=== PATIENT | male | born 1945 | race Caucasian/White ===

== ENCOUNTER 2019-05-26 09:04 | Day surgery (SDC) | payer MEDICARE, BC ==
[~2019-05-26 09:04] MED LIST: Lactated Ringers 1,000 ML IV SCH
[2019-05-26] MEDS ORDERED: Propofol 200 MG/20 ML SDV ONE (11:11)
[2019-05-26] MEDS ORDERED: fentaNYL 100 MCG/2 ML SDV ONE (11:11)
[2019-05-26] MEDS ORDERED: Midazolam 1 MG/ML 2 ML SDV ONE (11:11)
--- NOTE | 2019-05-26 17:54 | OR ---
PRE-OPERATIVE DIAGNOSIS: Screening colonoscopy. The patient's last colonoscopy was in about 2002. There is no known family history of colon cancer or colon polyps. POST-OPERATIVE DIAGNOSES: 1. Three total polyps removed. a. 9 mm and 3 mm polyps at 130 cm with the larger removed using hot snare and smaller removed using cold snare. b. 2 mm polyp at 110 cm removed using cold forceps. 2. Floppy redundant colon likely from chronic laxative use. PROCEDURE: Colonoscopy with polypectomy x3 (one using hot snare, one using cold snare, and one using cold forceps). ANESTHESIA: Monitored anesthesia care. BOWEL PREP: Fair to poor. This did require significant irrigation and suction, but I would say we were able to adequately visualize the vast majority of the colonic mucosa after irrigation. DESCRIPTION OF PROCEDURE: Delta is a 73-year-old male who was brought to the endoscopy suite after discussing risks and benefits of the procedure. Informed consent was obtained for conscious sedation and colonoscopy with or without biopsy and/or polypectomy. We also discussed possibility of missed lesions. Pre-procedure exam was unremarkable. IV, oxygen, and monitors were placed. The patient was placed in the left lateral decubitus position. Sedation was administered and a digital rectal exam was performed and unremarkable. Colonoscope was passed into the rectum and slowly advanced all the way to the cecum. Cecum was viewed and photographed. The colonoscope was slowly withdrawn and the mucosa was closely observed in a direct circumferential manner. The ascending colon was remarkable for 9 mm and 3 mm polyps at 130 cm, removed using hot snare and cold snare respectively. The transverse colon revealed 2 mm polyp at 110 cm removed using cold forceps. Descending colon unremarkable. Sigmoid colon unremarkable. Retroflexion was performed. Rectal mucosa unremarkable. Scope was removed. The patient tolerated the procedure well. The patient was monitored until that baseline status. Discharge instructions were reviewed and the patient was discharged in good condition. COMPLICATIONS: None. TOTAL TIME: 36 minutes. ESTIMATED BLOOD LOSS: Less than 1 mL. RECOMMENDATIONS/FOLLOW-UP: We will await results of path report to determine ideal followup interval. I will have the patient hold his aspirin for 3 days to limit any chance of bleeding from the polypectomy sites. I would like to kindly thank Jared Nunez for this referral. DMB: 05/26/2019 12:53:02 MODL: 05/26/2019 17:49:55 /[id number]
== END 2019-05-26 13:20 | disposition home or self-care (01) ==
LOC: VM.SDS 09:04
PROVIDERS: ATTEND Family Medicine
DX: Z12.11 Encounter for screening for malignant neoplasm of colon (principal); Z86.010 Personal history of colon polyps; D12.3 Benign neoplasm of transverse colon
CPT/HCPCS: 00811; 45380; 45385; 82962; 88305; J2250; J2704; J3010; J7120; 45384

== ENCOUNTER 2020-04-25 14:28 | Inpatient (IN) | payer MEDICARE, BC ==
[2020-04-25] MEDS ORDERED: Sennosides 8.6 MG Tab PO PRN (16:43)
[2020-04-25] MEDS ORDERED: traMADol 50 MG Tab PO PRN (16:43)
[2020-04-25] MEDS: metFORMIN 500 MG Tab PO SCH (18:01)
--- NOTE | 2020-04-25 19:45 | HP ---
CHIEF COMPLAINT: Back surgery. HISTORY OF PRESENT ILLNESS: This is a 74-year-old male who underwent an L2 through 5 PLIF with osteotomies and interbody fusion on 04/17. His postoperative course was complicated by increased incisional back pain, which was eventually controlled with IV Dilaudid and Tracy and tramadol, which he was alternating it sounds like every 6 hours scheduled. They would just bring it to him. Intraoperatively, he also had a durotomy that was repaired. The patient tells me he was having bowel movement since surgery, but none since 2 days ago. His pain was really doing pretty good until the ride over today and then trying to get his clothes off and use the urinal. He has not had any cough or trouble breathing. His underlying medical issues of diabetes and hypertension were stable during his stay in [place]. His blood sugars were in the 130s to 199 before leaving. He told me he was eating quite good. The patient had a COVID test yesterday that was negative. His kidney function was excellent at 0.8 yesterday. Otherwise, he does have an intrathecal pain pump with Dilaudid, which he has not used, but was recommended he could start using once he was off the IV Dilaudid. He has remote for bolus dosing. ALLERGIES: Include penicillin. MEDICATIONS: Include hydrocodone 10/325 every 6 hours as needed for moderate-to- severe pain for up to 10 days, tramadol 50 mg every 6 hours as needed for yrmlsyky-hj-wubxiu pain for up to 14 days, Senokot 1 tab twice daily as needed for constipation, Colace 1 capsule 2 times a day as needed for constipation, Cymbalta 90 mg daily, intrathecal pain pump with hydromorphone, clonidine, bupivacaine. If any questions, call Pain Management at [phone]. Neurontin 800 three times a day, vitamin D 3000 units daily, baclofen 10 mg twice daily as needed for muscle spasm, metformin 500 mg twice daily with meals, glipizide 5 mg daily, lisinopril 2.5 daily, Prilosec 20 mg daily, Crestor 20 mg at bedtime, Flomax 0.8 daily, MiraLAX 17 g daily, Ditropan 5 mg b.i.d., ketoconazole shampoo, looks like that was from 2018, betamethasone lotion also from 2017, aspirin 81 mg daily. May resume 1 week after surgery, which is now. Melatonin 10 mg at bedtime, B12 1000 mcg daily, diabetic testing supplies, and a multivitamin. 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 The patient is unaware of any heart disease. Chronic renal insufficiency is listed, however, recent creatinine was normal. COPD, degenerative disk disease of the lumbar spine, previous cervical spine surgery, type 2 diabetes, erectile dysfunction, essential hypertension, hyperlipidemia, hypogonadism, neuropathic pain with neuropathy, obesity, arthritis of the right hip. PAST SURGICAL HISTORY: The patient has had the left total hip surgery done, the spine surgery, anal fistula surgery, a left shoulder surgery, a right shoulder replacement. The left shoulder was just rotator cuff ruptured tendon repair, pain pump insertion, bilateral elbow surgeries, the cervical neck surgery, the hernia repair in 1996, inguinal, cholecystectomy, anal fissure surgery. SOCIAL HISTORY: The patient is . He lives at home with his . He is retired. 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 He is a nonsmoker, nondrinker. Did quit smoking in 2006. FAMILY HISTORY: Both parents are . Mother had dementia and arthritis. Father had a heart attack. His sister had some heart valve issue. REVIEW OF SYSTEMS: General: He has not had any fever, chills per chart review. No significant changes in weight other than he is 7 pounds steam bone press tender than before surgery. HEENT: No trouble swallowing. Cardiac: No chest pain. No palpitations. Respiratory: No cough. No shortness of breath. GI: No abdominal pain, nausea, or vomiting. Musculoskeletal: He has had back discomfort. Skin: No infections. : No issues with urination. Otherwise, all systems reviewed and found to be negative unless otherwise stated. PHYSICAL EXAMINATION: Vital Signs: His weight is 88.4 kg. Temp 98.8, pulse 82, blood pressure 123/74, respiratory rate is 16, O2 of 95% on room air. General: He is in no acute distress. Heart: Regular rate and rhythm. S1, S2 without murmur. Lungs: Lungs sounds are clear to auscultation bilaterally without crackles or wheezes. Abdomen: Has positive bowel sounds. Soft, nontender. Extremities: Warm and dry. Pain pump noted in the left lower quadrant. Mental Status: Alert and oriented x3. Incision was intact. He had sutures in place. There was mild redness and irritation at the superior aspect, but no drainage. The patient felt this was from rubbing on the chair. ASSESSMENT: 1. Status post L2 through 5 posterior lumbar interbody fusion with osteotomies on 04/17/2020. 2. Postoperative pain. 3. Diabetes type 2, on oral medications, controlled with neuropathy. 4. Essential hypertension. 5. Nonobstructive coronary artery disease. 6. Obesity. 7. Benign prostatic hyperplasia. 8. Neuropathy. PLAN: The patient will be admitted for swing bed cares. We will get PT, OT involved. We will do q.i.d. Accu-Cheks. We will restart his aspirin. We will have him on ALLAN hose and incentive spirometry. We will have his back brace on when out of bed as recommended for the next 6 weeks. He will have no NSAIDs for 3 months postop. He will have sutures out on the , and he will follow up with Neurosurgery in 6 weeks. Otherwise, we will schedule the Tracy 3 times a day and keep it q.6 hours p.r.n. along with the tramadol to ensure his pain is well controlled. Eventually, hopefully, we will get him only on p.r.n. and using less amounts. I will contact the Pain Clinic in [place] tomorrow, but I anticipate he will be able to use his IV bolus intrathecal pain pump soon. The patient is a code level 1. MKA: 04/25/2020 17:49:47 MODL: 04/25/2020 19:36:10 /[id number]
[2020-04-25] MEDS: Gabapentin 400 MG Cap PO SCH (19:53)
[2020-04-25] MEDS: Acetaminophen/HYDROcodone 325-10 MG Tab PO SCH (19:54)
[2020-04-25] MEDS: Oxybutynin 5 MG Tab PO SCH (19:55)
[2020-04-26] MEDS: Omeprazole 20 MG Cap.CR PO SCH (06:12)
[2020-04-26] MEDS: Acetaminophen/HYDROcodone 325-10 MG Tab PO PRN (06:12)
[2020-04-26] MEDS: glipiZIDE 5 MG Tab.ER PO SCH (08:04)
[2020-04-26] MEDS: Gabapentin 400 MG Cap PO SCH ×3 (08:04→21:13)
[2020-04-26] MEDS: Oxybutynin 5 MG Tab PO SCH ×2 (08:04→21:15)
[2020-04-26] MEDS: DULoxetine 60 MG Cap PO SCH (08:04)
[2020-04-26] MEDS: Cyanocobalamin (Vitamin B12) 1,000 MCG Tab PO SCH (08:04)
[2020-04-26] MEDS: DULoxetine 30 MG Cap PO SCH (08:04)
[2020-04-26] MEDS: atorvaSTATin 40 MG Tab PO SCH (08:04)
[2020-04-26] MEDS: Tamsulosin 0.4 MG Cap.ER PO SCH (08:05)
[2020-04-26] MEDS: Aspirin 81 MG Tab.EC PO SCH (08:05)
[2020-04-26] MEDS: metFORMIN 500 MG Tab PO SCH ×2 (08:05→18:32)
[2020-04-26] MEDS: Acetaminophen/HYDROcodone 325-10 MG Tab PO SCH ×3 (08:05→21:15)
[2020-04-26] MEDS: Polyethylene Glycol 3350 Powder 17 GM Packet PO SCH (08:06)
[2020-04-26] MEDS: Lisinopril 2.5 MG Tab PO SCH (08:06)
[2020-04-26] MEDS: Cholecalciferol (Vitamin D3) 25 MCG Tab PO SCH (08:13)
[2020-04-26] MEDS: Multivitamin, Stress Formula with Zinc Tab PO SCH (08:13)
[2020-04-26] MEDS: Acetaminophen/Diphenhydramine 500-25 MG Tab PO SCH (21:14)
[2020-04-26] MEDS: Melatonin 3 MG Tab PO SCH (21:15)
[2020-04-27] MEDS: Omeprazole 20 MG Cap.CR PO SCH (06:18)
[2020-04-27] MEDS: glipiZIDE 5 MG Tab.ER PO SCH (08:13)
[2020-04-27] MEDS: Polyethylene Glycol 3350 Powder 17 GM Packet PO SCH (08:13)
[2020-04-27] MEDS: DULoxetine 60 MG Cap PO SCH (08:13)
[2020-04-27] MEDS: Cyanocobalamin (Vitamin B12) 1,000 MCG Tab PO SCH (08:13)
[2020-04-27] MEDS: Aspirin 81 MG Tab.EC PO SCH (08:13)
[2020-04-27] MEDS: atorvaSTATin 40 MG Tab PO SCH (08:13)
[2020-04-27] MEDS: Lisinopril 2.5 MG Tab PO SCH (08:13)
[2020-04-27] MEDS: Gabapentin 400 MG Cap PO SCH ×3 (08:13→20:37)
[2020-04-27] MEDS: Tamsulosin 0.4 MG Cap.ER PO SCH (08:14)
[2020-04-27] MEDS: DULoxetine 30 MG Cap PO SCH (08:14)
[2020-04-27] MEDS: Acetaminophen/HYDROcodone 325-10 MG Tab PO SCH ×3 (08:14→20:39)
[2020-04-27] MEDS: Oxybutynin 5 MG Tab PO SCH ×2 (08:14→20:39)
[2020-04-27] MEDS: metFORMIN 500 MG Tab PO SCH ×2 (08:14→18:15)
[2020-04-27] MEDS: Cholecalciferol (Vitamin D3) 25 MCG Tab PO SCH (08:15)
[2020-04-27] MEDS: Multivitamin, Stress Formula with Zinc Tab PO SCH (08:15)
[2020-04-27] MEDS: Vitamin B Complex Tab PO SCH (09:49)
[2020-04-27] MEDS: Docusate Sodium 100 MG Cap PO PRN (20:36)
[2020-04-27] MEDS: Melatonin 3 MG Tab PO SCH (20:38)
[2020-04-27] MEDS: Acetaminophen/Diphenhydramine 500-25 MG Tab PO SCH (20:38)
[2020-04-28] MEDS: Omeprazole 20 MG Cap.CR PO SCH (06:19)
[2020-04-28] MEDS: glipiZIDE 5 MG Tab.ER PO SCH (08:19)
[2020-04-28] MEDS: Polyethylene Glycol 3350 Powder 17 GM Packet PO SCH (08:19)
[2020-04-28] MEDS: DULoxetine 30 MG Cap PO SCH (08:20)
[2020-04-28] MEDS: Cholecalciferol (Vitamin D3) 25 MCG Tab PO SCH (08:20)
[2020-04-28] MEDS: Lisinopril 2.5 MG Tab PO SCH (08:20)
[2020-04-28] MEDS: Acetaminophen/HYDROcodone 325-10 MG Tab PO SCH ×3 (08:24→20:46)
[2020-04-28] MEDS: DULoxetine 60 MG Cap PO SCH (08:24)
[2020-04-28] MEDS: Vitamin B Complex Tab PO SCH (08:25)
[2020-04-28] MEDS: Gabapentin 400 MG Cap PO SCH ×3 (08:25→20:45)
[2020-04-28] MEDS: Oxybutynin 5 MG Tab PO SCH ×2 (08:25→20:45)
[2020-04-28] MEDS: Tamsulosin 0.4 MG Cap.ER PO SCH (08:25)
[2020-04-28] MEDS: Aspirin 81 MG Tab.EC PO SCH (08:25)
[2020-04-28] MEDS: atorvaSTATin 40 MG Tab PO SCH (08:25)
[2020-04-28] MEDS: Cyanocobalamin (Vitamin B12) 1,000 MCG Tab PO SCH (08:25)
[2020-04-28] MEDS: metFORMIN 500 MG Tab PO SCH ×2 (08:26→17:24)
[2020-04-28] MEDS: Docusate Sodium 100 MG Cap PO PRN (17:25)
[2020-04-28] MEDS: Acetaminophen/Diphenhydramine 500-25 MG Tab PO SCH (20:45)
[2020-04-28] MEDS: Melatonin 3 MG Tab PO SCH (20:47)
[2020-04-29] MEDS: Omeprazole 20 MG Cap.CR PO SCH (06:03)
[2020-04-29] MEDS: Polyethylene Glycol 3350 Powder 17 GM Packet PO SCH (07:49)
[2020-04-29] MEDS: metFORMIN 500 MG Tab PO SCH ×2 (07:50→17:35)
[2020-04-29] MEDS: Oxybutynin 5 MG Tab PO SCH ×2 (07:50→21:00)
[2020-04-29] MEDS: glipiZIDE 5 MG Tab.ER PO SCH (07:50)
[2020-04-29] MEDS: Acetaminophen/HYDROcodone 325-10 MG Tab PO SCH ×3 (07:50→21:00)
[2020-04-29] MEDS: Tamsulosin 0.4 MG Cap.ER PO SCH (07:50)
[2020-04-29] MEDS: Cholecalciferol (Vitamin D3) 25 MCG Tab PO SCH (07:51)
[2020-04-29] MEDS: DULoxetine 30 MG Cap PO SCH (07:51)
[2020-04-29] MEDS: DULoxetine 60 MG Cap PO SCH (07:51)
[2020-04-29] MEDS: Aspirin 81 MG Tab.EC PO SCH (07:51)
[2020-04-29] MEDS: Vitamin B Complex Tab PO SCH (07:51)
[2020-04-29] MEDS: Lisinopril 2.5 MG Tab PO SCH (07:52)
[2020-04-29] MEDS: atorvaSTATin 40 MG Tab PO SCH (07:54)
[2020-04-29] MEDS: Gabapentin 400 MG Cap PO SCH ×3 (07:54→21:00)
[2020-04-29] MEDS: Cyanocobalamin (Vitamin B12) 1,000 MCG Tab PO SCH (07:54)
[2020-04-29] MEDS ORDERED: Bisacodyl 10 MG Supp RECTAL ONE (11:27)
[2020-04-29] MEDS: Docusate Sodium 100 MG Cap PO PRN (12:09)
[2020-04-29] MEDS ORDERED: Magnesium Citrate Solution 296 ML Bottle PO ONE (20:43)
[2020-04-29] MEDS: Acetaminophen/Diphenhydramine 500-25 MG Tab PO SCH (21:00)
[2020-04-29] MEDS: Melatonin 3 MG Tab PO SCH (21:00)
[2020-04-29] MEDS: Docusate Sodium 100 MG Cap PO SCH (21:22)
[2020-04-30] MEDS: Omeprazole 20 MG Cap.CR PO SCH (06:07)
[2020-04-30] MEDS ORDERED: Magnesium Citrate Solution 296 ML Bottle PO ONE (08:00)
[2020-04-30] MEDS: Polyethylene Glycol 3350 Powder 17 GM Packet PO SCH (08:28)
[2020-04-30] MEDS: Lisinopril 2.5 MG Tab PO SCH (08:29)
[2020-04-30] MEDS: Acetaminophen/HYDROcodone 325-10 MG Tab PO SCH ×3 (08:31→20:04)
[2020-04-30] MEDS: Cholecalciferol (Vitamin D3) 25 MCG Tab PO SCH (08:32)
[2020-04-30] MEDS: Aspirin 81 MG Tab.EC PO SCH (08:32)
[2020-04-30] MEDS: atorvaSTATin 40 MG Tab PO SCH (08:32)
[2020-04-30] MEDS: Gabapentin 400 MG Cap PO SCH ×3 (08:33→20:04)
[2020-04-30] MEDS: glipiZIDE 5 MG Tab.ER PO SCH (08:33)
[2020-04-30] MEDS: metFORMIN 500 MG Tab PO SCH ×2 (08:33→17:38)
[2020-04-30] MEDS: Cyanocobalamin (Vitamin B12) 1,000 MCG Tab PO SCH (08:33)
[2020-04-30] MEDS: Docusate Sodium 100 MG Cap PO SCH (08:33)
[2020-04-30] MEDS: Tamsulosin 0.4 MG Cap.ER PO SCH (08:33)
[2020-04-30] MEDS: DULoxetine 30 MG Cap PO SCH (08:34)
[2020-04-30] MEDS: Vitamin B Complex Tab PO SCH (08:34)
[2020-04-30] MEDS: DULoxetine 60 MG Cap PO SCH (08:34)
[2020-04-30] MEDS: Oxybutynin 5 MG Tab PO SCH (08:34)
--- NOTE | 2020-04-30 13:17 | PN ---
Progress Note for RICKY ANDERSON Date: 04/30/2020 Room #: VM.212 SUBJECTIVE: This is a 74-year-old recovering after back surgery. He has not had a bowel movement now since his arrival on the . He is not overly uncomfortable, but did get a suppository last night without results. He has not received any p.r.n. hydrocodone or tramadol but has been on his scheduled 3 times a day. He has not been using his pain pump. He otherwise has been eating well, is on stool softeners and MiraLAX. OBJECTIVE: Vital Signs: His temperature 97.9, pulse 72, blood pressure of 114/67, respiratory rate 16, and O2 of 92% on room air. General: He is in no acute distress. He is alert and orientated x3. He is in no respiratory distress. Due to isolation precautions, the full exam was not performed. LABORATORY DATA: Blood sugars have been excellent 106 to 175 was the highest yesterday afternoon. ASSESSMENT AND PLAN: 1. Constipation from postop spinal surgery, likely due to pain pills, we will cut down to twice a day. The baclofen he has not received, but the oxybutynin is constipating, so we will hold that. We will continue with the plan to do the magnesium citrate bottle if no bowel movement. He would like an enema either later tonight or tomorrow. 2. L2 through 5 lumbar interbody fusion on 04/17/2020. Continue with therapies. 3. Postoperative pain. Seems to be doing well, not using p.r.n. We will decrease the scheduled and likely change it overall to p.r.n. soon. 4. Type 2 diabetes, controlled. We will decrease to twice daily Accu-Cheks. 5. Essential hypertension. 6. Nonobstructive coronary artery disease. 7. Obesity. 8. BPH with urinary frequency. Oxybutynin is on hold. He is also on Flomax. 9. Neuropathy. Plan at this point, we will work on patient having a bowel movement with magnesium citrate. We will schedule more senna, enema if needed. Cut back on his pain pills. I still have not heard back from [facility]. He has no interest in using the intrathecal pain pump currently. MKA: 04/30/2020 12:43:00 MODL: 04/30/2020 13:10:19 /[id number]
[2020-04-30] MEDS ORDERED: Ondansetron 4 MG Tab.DIS PO ONE (17:48)
[2020-04-30] MEDS: Melatonin 3 MG Tab PO SCH (20:03)
[2020-04-30] MEDS: Acetaminophen/Diphenhydramine 500-25 MG Tab PO SCH (20:03)
[2020-05-01] MEDS: Omeprazole 20 MG Cap.CR PO SCH ×2 (05:36→06:12)
[2020-05-01] MEDS: DULoxetine 60 MG Cap PO SCH (08:20)
[2020-05-01] MEDS: Tamsulosin 0.4 MG Cap.ER PO SCH (08:21)
[2020-05-01] MEDS: Vitamin B Complex Tab PO SCH (08:21)
[2020-05-01] MEDS: Lisinopril 2.5 MG Tab PO SCH (08:21)
[2020-05-01] MEDS: Acetaminophen/HYDROcodone 325-10 MG Tab PO SCH ×2 (08:21→20:03)
[2020-05-01] MEDS: metFORMIN 500 MG Tab PO SCH ×2 (08:21→17:44)
[2020-05-01] MEDS: Cholecalciferol (Vitamin D3) 25 MCG Tab PO SCH (08:21)
[2020-05-01] MEDS: Cyanocobalamin (Vitamin B12) 1,000 MCG Tab PO SCH (08:21)
[2020-05-01] MEDS: Docusate Sodium 100 MG Cap PO SCH (08:21)
[2020-05-01] MEDS: glipiZIDE 5 MG Tab.ER PO SCH (08:21)
[2020-05-01] MEDS: Gabapentin 400 MG Cap PO SCH ×3 (08:22→20:01)
[2020-05-01] MEDS: Aspirin 81 MG Tab.EC PO SCH (08:22)
[2020-05-01] MEDS: DULoxetine 30 MG Cap PO SCH (08:22)
[2020-05-01] MEDS: atorvaSTATin 40 MG Tab PO SCH (08:22)
[2020-05-01] MEDS: Polyethylene Glycol 3350 Powder 17 GM Packet PO SCH (08:23)
[2020-05-01] MEDS ORDERED: Albuterol 0.083% 2.5 MG/3 ML Neb Soln NEB PRN (09:33)
[2020-05-01] MEDS ORDERED: HYDROMORPHONE PRN (14:51)
[2020-05-01] MEDS ORDERED: BUPIVACAINE PRN (14:51)
[2020-05-01] MEDS ORDERED: CLONIDINE PRN (14:51)
--- NOTE | 2020-05-01 16:15 | PN ---
Progress Note for RCIKY ANDERSON Date: 05/01/2020 Room #: VM.212 SUBJECTIVE: This is a 74-year-old seen on Swing bed after lumbar back surgery. Sutures were removed today. The incision looks intact, just a 1 inch area at the top of the wound with some superficial dehiscence, however, no deeper opening. No drainage. No surrounding redness or warmth. He did finally have some bowel movement results last night. He is feeling better with no nausea but did have an episode of choking on breakfast and had a little wheezing. He states he has a history of asthma as a kid, and he has used his 's inhaler at home. Lungs were clear, but there was some wheezing per the nurse. We did order a p.r.n. nebulizer after discussing with the patient. We also told him about cutting back on his Ditropan due to the constipation. He will let us know if any voiding issues. OBJECTIVE: Vital Signs: His temperature 97.8, pulse 76, blood pressure 144/74, respiratory rate 18, and O2 of 93% on room air. General: He is in no acute distress. Heart: Regular rate and rhythm. S1, S2 without murmur. Lungs: Lung sounds are clear to auscultation bilaterally without crackles or wheezes. Extremities: Warm and dry. No edema. The incision is examined as stated above. It appears intact except for a small area of superficial dehiscence that we will put on Steri-Strips. ASSESSMENT: 1. L2 through 5 interbody fusion on 04/17/2020, doing well, working with therapies. 2. Postoperative pain, doing well. He has not used his intrathecal pain pump. He will decrease to just bedtime scheduled pain pills. He has not been using any p.r.n. 3. Type 2 diabetes, controlled. 4. Essential hypertension. 5. Nonobstructive coronary artery disease. 6. Obesity. 7. Constipation, resolved. 8. BPH. Oxybutynin is on hold. We will continue to monitor. He is on Flomax. 9. Neuropathy. PLAN: At this point, the patient will continue on Swing bed cares. Anticipate discharge when he meets his goals with therapies, which he is hoping to be soon. Continue a bowel regimen and add p.r.n. nebulizers as needed for cough. The patient feels that this swallowing problem has happened intermittently at home. If it continues, we will pursue more of a swallow evaluation. MKA: 05/01/2020 15:30:34 MODL: 05/01/2020 16:06:33 /[id number]
[2020-05-01] MEDS: Acetaminophen/Diphenhydramine 500-25 MG Tab PO SCH (20:02)
[2020-05-01] MEDS: Melatonin 3 MG Tab PO SCH (20:02)
[2020-05-02] MEDS: Omeprazole 20 MG Cap.CR PO SCH (06:17)
[2020-05-02] MEDS: DULoxetine 30 MG Cap PO SCH (08:20)
[2020-05-02] MEDS: Cyanocobalamin (Vitamin B12) 1,000 MCG Tab PO SCH (08:20)
[2020-05-02] MEDS: Aspirin 81 MG Tab.EC PO SCH (08:20)
[2020-05-02] MEDS: DULoxetine 60 MG Cap PO SCH (08:20)
[2020-05-02] MEDS: Vitamin B Complex Tab PO SCH (08:20)
[2020-05-02] MEDS: atorvaSTATin 40 MG Tab PO SCH (08:22)
[2020-05-02] MEDS: glipiZIDE 5 MG Tab.ER PO SCH (08:22)
[2020-05-02] MEDS: metFORMIN 500 MG Tab PO SCH ×2 (08:22→17:21)
[2020-05-02] MEDS: Tamsulosin 0.4 MG Cap.ER PO SCH (08:22)
[2020-05-02] MEDS: Gabapentin 400 MG Cap PO SCH ×3 (08:22→20:15)
[2020-05-02] MEDS: Polyethylene Glycol 3350 Powder 17 GM Packet PO SCH (08:23)
[2020-05-02] MEDS: Docusate Sodium 100 MG Cap PO SCH (08:29)
[2020-05-02] MEDS: Cholecalciferol (Vitamin D3) 25 MCG Tab PO SCH (08:29)
[2020-05-02] MEDS: Lisinopril 2.5 MG Tab PO SCH (12:06)
[2020-05-02] MEDS: Baclofen 10 MG Tab PO PRN (17:26)
[2020-05-02] MEDS: Docusate Sodium 100 MG Cap PO PRN (17:26)
[2020-05-02] MEDS: Acetaminophen/HYDROcodone 325-10 MG Tab PO PRN (17:26)
[2020-05-02] MEDS: Acetaminophen/HYDROcodone 325-10 MG Tab PO SCH (20:15)
[2020-05-02] MEDS: Acetaminophen/Diphenhydramine 500-25 MG Tab PO SCH (20:16)
[2020-05-02] MEDS: Melatonin 3 MG Tab PO SCH (20:16)
[2020-05-03 05:14] VITALS: PULSE 70
[2020-05-03] MEDS: Omeprazole 20 MG Cap.CR PO SCH (06:17)
[2020-05-03 08:21] VITALS: BP 119/59
[2020-05-03] MEDS: DULoxetine 60 MG Cap PO SCH (08:23)
[2020-05-03] MEDS: Docusate Sodium 100 MG Cap PO SCH (08:23)
[2020-05-03] MEDS: DULoxetine 30 MG Cap PO SCH (08:23)
[2020-05-03] MEDS: glipiZIDE 5 MG Tab.ER PO SCH (08:23)
[2020-05-03] MEDS: Cyanocobalamin (Vitamin B12) 1,000 MCG Tab PO SCH (08:23)
[2020-05-03] MEDS: Gabapentin 400 MG Cap PO SCH ×2 (08:24→12:38)
[2020-05-03] MEDS: Tamsulosin 0.4 MG Cap.ER PO SCH (08:24)
[2020-05-03] MEDS: atorvaSTATin 40 MG Tab PO SCH (08:25)
[2020-05-03] MEDS: Aspirin 81 MG Tab.EC PO SCH (08:26)
[2020-05-03] MEDS: Vitamin B Complex Tab PO SCH (08:26)
[2020-05-03] MEDS: Polyethylene Glycol 3350 Powder 17 GM Packet PO SCH (08:26)
[2020-05-03] MEDS: metFORMIN 500 MG Tab PO SCH ×2 (08:26→17:06)
[2020-05-03] MEDS: Cholecalciferol (Vitamin D3) 25 MCG Tab PO SCH (08:34)
[2020-05-03] MEDS: Baclofen 10 MG Tab PO PRN (08:34)
[2020-05-03] MEDS: Lisinopril 2.5 MG Tab PO SCH (08:34)
--- NOTE | 2020-05-03 09:42 | PCM.DCSUM1 ---
Discharge Summary - Hospital Course Brief History: Mr. Locke is a 74 yo male who was admitted to swing bed for strengthening after lumbar spine surgery. - Discharge Data Discharge Date: 05/03/20 Discharge Disposition: Home, Self-Care 01 Condition: Good - Referral to Home Health Primary Care Physician: Jared Nunez PA-C - Patient Summary/Data Operative Procedure(s) Performed: none Complications: none Consults: Consultations 04/25/20 16:58 OT Evaluation and Treatment [CONS] Routine PT Evaluation and Treatment [CONS] Routine Labs Pending at D/C: none Recommended Follow-up Testing/Procedures: none Planned Operative Procedure(s) after DC: none Hospital Course: The patient was [facility]. He worked with PT and OT for strengthening. He progressed well with therapies and is meeting goals for discharge home. He will plan to continue PT as an outpatient at [facility]; he will not be going home with home health. His pain has progressively improved during his hospital stay and his medications have been weaned as able. His hospitalization was complicated by constipation, which is not uncommon for him. He feels he is at baseline with this. His hospitalization was otherwise essentially uncomplicated. - Patient Instructions Diet: Diabetic Diet Driving: Do Not Drive Wound/Incision Care: Keep Operative Site/Wound Site Clean and Dry Notify Provider of: Fever, Increased Pain, Swelling and Redness - Discharge Plan *PRESCRIPTION DRUG MONITORING PROGRAM REVIEWED*: Yes (epic) *COPY OF PRESCRIPTION DRUG MONITORING REPORT IN PATIENT ELLEN: Yes Home Medications: Home Meds Aspirin [Halfprin] 81 mg PO DAILY 05/24/19 [History] Baclofen 10 mg PO BID PRN 05/24/19 [History] Cholecalciferol (Vitamin D3) [Vitamin D3] 3,000 unit PO DAILY 05/24/19 [History] Cyanocobalamin (Vitamin B-12) [B-12] 1,000 mcg PO DAILY 05/24/19 [History] DULoxetine [Cymbalta] 30 mg PO DAILY 05/24/19 [History] DULoxetine [Cymbalta] 60 mg PO DAILY 05/24/19 [History] Gabapentin [Neurontin] 800 mg PO TID 05/24/19 [History] Melatonin 10 mg PO BEDTIME 05/24/19 [History] Omeprazole 20 mg PO DAILY 05/24/19 [History] Rosuvastatin Calcium 20 mg PO DAILY 05/24/19 [History] Tamsulosin HCl [Flomax] 0.8 mg PO DAILY 05/24/19 [History] glipiZIDE [Glipizide ER] 5 mg PO DAILY 05/24/19 [History] lisinopriL [Lisinopril] 2.5 mg PO DAILY 05/24/19 [History] polyethylene glycoL 3350 [MiraLAX] 17 gm PO DAILY 05/24/19 [History] Betamethasone Dipropionate [Diprolene 0.05% Lotion] 1 applic TOP BID PRN 04/25/20 [History] Hydrocodone/Acetaminophen [Hydrocodone-Acetamin 10-325 mg] 1 tab PO Q6HR PRN 04/25/20 [History] Ketoconazole [Nizoral 2% Shampoo] 1 applic TOP DAILY 04/25/20 [History] Multivitamin [Multi-Vitamin Daily] 1 tab PO DAILY 04/25/20 [History] Non-Formulary Medication [NF Drug] 21 ml ITHECAL ASDIRECTED 04/25/20 [History] metFORMIN [Glucophage] 500 mg PO BIDMEALS 04/25/20 [History] Docusate Sodium/Sennosides [Senna Plus] 1 tab PO BID PRN 04/26/20 [History] Docusate Sodium/Sennosides [Senna Plus] 1 tab PO BID tablet 05/02/20 [Rx] Oxygen Therapy Mode: Room Air - Discharge Summary/Plan Comment DC Time >30 min.: No - General Info Date of Service: 05/03/20 Subjective Update: Patient states he is doing well today. He is looking forward to discharge home. Pain is controlled. Last BM was 2 days ago, not unusual for him. No other concerns. - Review of Systems General: Reports: No Symptoms HEENT: Reports: No Symptoms Pulmonary: Reports: No Symptoms Cardiovascular: Reports: No Symptoms Gastrointestinal: Reports: No Symptoms Genitourinary: Reports: No Symptoms Musculoskeletal: Reports: No Symptoms Neurological: Reports: No Symptoms - Patient Data Vitals - Most Recent: Last Vital Signs Temp 36.3 C 05/03/20 05:13 Pulse 70 05/03/20 05:13 Resp 18 05/03/20 05:13 BP 119/59 L 05/03/20 08:34 Pulse Ox 95 05/03/20 05:13 Weight - Most Recent: 88.451 kg I&O - Last 24 hours: Intake & Output 05/02/20 05/03/20 05/03/20 22:59 06:59 14:59 Intake Total 360 320 Balance 360 320 Lab Results - Last 24 hrs: Laboratory Results - last 24 hr 05/02/20 05/03/20 Range/Units 17:18 06:19 POC Glucose 131 H 112 H (74-106) mg/dL Med Orders - Current: Current Medications Acetaminophen/Diphenhydramine HCl (Tylenol Pm Extra Strength) 1 tab PO BEDTIME [facility] Last Admin: 05/02/20 20:16 Dose: 1 tab Documented by: Hydrocodone Bitart/Acetaminophen ([place] 325-10 Mg) 1 tab PO Q6H PRN PRN Reason: pain Last Admin: 05/02/20 17:26 Dose: 1 tab Documented by: Hydrocodone Bitart/Acetaminophen ([place] 325-10 Mg) 1 tab PO BEDTIME [facility] Last Admin: 05/02/20 20:15 Dose: 1 tab Documented by: Albuterol (Proventil Neb Soln) 2.5 mg NEB Q4HRRT PRN PRN Reason: Cough Aspirin (Halfprin) 81 mg PO WITHBREAKFAST [facility] Last Admin: 05/03/20 08:26 Dose: 81 mg Documented by: Atorvastatin Calcium (Lipitor) 80 mg PO DAILY [facility] Last Admin: 05/03/20 08:25 Dose: 80 mg Documented by: Baclofen (Lioresal) 10 mg PO BID PRN PRN Reason: MUSCLE SPASMS Last Admin: 05/03/20 08:34 Dose: 10 mg Documented by: Cholecalciferol (Vitamin D3) 75 mcg PO DAILY [facility] Last Admin: 05/03/20 08:34 Dose: 75 mcg Documented by: Cyanocobalamin (Vitamin B12) 1,000 mcg PO DAILY [facility] Last Admin: 05/03/20 08:23 Dose: 1,000 mcg Documented by: Docusate Sodium (Colace) 100 mg PO BID PRN PRN Reason: Constipation Last Admin: 05/02/20 17:26 Dose: 100 mg Documented by: Docusate Sodium (Colace) 100 mg PO DAILY [facility] Last Admin: 05/03/20 08:23 Dose: 100 mg Documented by: Duloxetine HCl (Cymbalta) 30 mg PO DAILY [facility] Last Admin: 05/03/20 08:23 Dose: 30 mg Documented by: Duloxetine HCl (Cymbalta) 60 mg PO DAILY [facility] Last Admin: 05/03/20 08:23 Dose: 60 mg Documented by: Gabapentin (Neurontin) 800 mg PO TID [facility] Last Admin: 05/03/20 08:24 Dose: 800 mg Documented by: Glipizide (Glucotrol Xl) 5 mg PO DAILY [facility] Last Admin: 05/03/20 08:23 Dose: 5 mg Documented by: Lisinopril (Prinivil) 2.5 mg PO DAILY [facility] Last Admin: 05/03/20 08:34 Dose: 2.5 mg Documented by: Melatonin (Melatonin) 9 mg PO BEDTIME [facility] Last Admin: 05/02/20 20:16 Dose: 9 mg Documented by: Metformin HCl (Glucophage) 500 mg PO BIDMEALS [facility] Last Admin: 05/03/20 08:26 Dose: 500 mg Documented by: Betamethasone (Dipropionate) 1 applic TOP BID PRN PRN Reason: Itching Syncromed Pain Pump (Hydromorphone, Bupivacaine, Clonidine) 1 each .XX BID PRN PRN Reason: Pain Omeprazole (Omeprazole) 20 mg PO ACBREAKFAST [facility] Last Admin: 05/03/20 06:17 Dose: 20 mg Documented by: Oxybutynin Chloride (Oxybutynin) 5 mg PO BID [facility] Last Admin: 04/30/20 08:34 Dose: 5 mg Documented by: Polyethylene Glycol (Miralax) 17 gm PO DAILY [facility] Last Admin: 05/03/20 08:26 Dose: 17 gm Documented by: Senna/Docusate Sodium (Senna Plus) 1 tab PO BID [facility] Last Admin: 05/03/20 08:25 Dose: 1 tab Documented by: Tamsulosin HCl (Flomax) 0.8 mg PO DAILY [facility] Last Admin: 05/03/20 08:24 Dose: 0.8 mg Documented by: Vitamin B Complex (Vitamin B Complex) 1 each PO DAILY [facility] Last Admin: 05/03/20 08:26 Dose: 1 each Documented by: Discontinued Medications Hydrocodone Bitart/Acetaminophen ([place] 325-10 Mg) 1 tab PO TID [facility] Last Admin: 04/30/20 12:06 Dose: 1 tab Documented by: Hydrocodone Bitart/Acetaminophen ([place] 325-10 Mg) 1 tab PO BID [facility] Last Admin: 05/01/20 08:21 Dose: 1 tab Documented by: Bisacodyl (Dulcolax) 10 mg RECTAL ONETIME ONE Stop: 04/29/20 11:28 Last Admin: 04/29/20 15:06 Dose: 10 mg Documented by: Cholecalciferol (Vitamin D3) 3,000 mcg PO DAILY [facility] Last Admin: 04/27/20 08:15 Dose: Not Given Documented by: Magnesium Citrate (Citrate Of Magnesia) 296 ml PO ONETIME ONE Stop: 04/30/20 08:01 Last Admin: 04/30/20 08:29 Dose: 296 ml Documented by: Ondansetron HCl (Zofran Odt) 4 mg PO ONETIME ONE Stop: 04/30/20 17:49 Last Admin: 04/30/20 18:21 Dose: 4 mg Documented by: Senna (Senna) 8.6 mg PO BID PRN PRN Reason: Constipation Last Admin: 04/25/20 22:35 Dose: 8.6 mg Documented by: Senna/Docusate Sodium (Senna Plus) 1 tab PO BID PRN PRN Reason: Constipation Last Admin: 04/29/20 21:22 Dose: 1 tab Documented by: Senna/Docusate Sodium (Senna Plus) 1 tab PO BID [facility] Last Admin: 04/30/20 20:04 Dose: Not Given Documented by: Senna/Docusate Sodium (Senna Plus) 2 tab PO BID [facility] Last Admin: 05/01/20 08:26 Dose: Not Given Documented by: Tramadol HCl (Ultram) 50 mg PO Q6H PRN PRN Reason: Pain Last Admin: 04/25/20 17:01 Dose: 50 mg Documented by: Vitamin B Complex/Vit C/Vit E/Zinc (Stress Formula With Zinc) 1 tab PO DAILY [facility] Last Admin: 04/27/20 08:15 Dose: Not Given Documented by: - Exam General: Reports: Alert, Oriented, Cooperative, No Acute Distress HEENT: Reports: Mucous Membr. Moist/[place] Neck: Reports: Supple, Trachea Midline, No Thyromegaly. Denies: Lymphadenopathy Lungs: Reports: Clear to Auscultation, Normal Respiratory Effort Cardiovascular: Reports: Regular Rate, Regular Rhythm, No Murmurs GI/Abdominal Exam: Normal Bowel Sounds, Soft, Non-Tender, No Organomegaly, No Distention, No Mass Extremities: Non-Tender, No Pedal Edema, Normal Capillary Refill Skin: Reports: Warm, Dry
--- NOTE | 2020-05-03 11:52 | PCM.SN.2 ---
- Free Text/Narrative Note: Courtesy consult: I was asked to consult on a patient who has had a long history of back pain. Patient had an L2-L5 fusion with osteotomies. This was performed on 17 April 2020. This is a pleasant 74-year-old male who told me he has had a long standing history of back pain and has had an implantable pain pump in place for approximately 6 years. When the pain pump was placed he did report that he had increased pain right around the area where the pain pump catheter was placed. Prior to surgery, he reported both pain in the lumbar axial back as well as pain laterally on the left side which he felt was related to his pain pump. Is talked to numerous providers about what could be done and none of them have offered any significant answers. The patient then underwent spinal fusion and since then he is reported that his axial back pain as well as his localized spot pain was significantly improved. This was approximately 2 weeks ago and his pain is not really been that bothersome for him. He did tell me today that the localized pain that he been experiencing is not been apparent since surgery. They had talked to him about the possibility of doing some manipulation with the intrathecal infusion system due to its proximity to the fusion. Patient is unsure of exactly what was done and I do not currently have access to those records. Assessment/Plan: Patient seems to be having this and control of his pain at this time. The pain that had been quite bothersome and excruciating prior to surgery seems to be under much better control. The patient is also proximately 2 weeks post surgery, 16 days postop. I think that the patient may have some pre- existing trigger point type pain that may be contributing but at this time his pain is quite comfortable. He is also very close to surgery that I would not care to do any interventions at this time. I did discuss with him the possibility of returning at some point in the future. I did suggest that he wait until he is seen neurosurgery and heard what they have to say her feel about how things are going and his pain. At that point I certainly would be open to evaluating this patient and seeing what treatments we may be able to produce. Given the surgery that he is undergone and the fact that he has an intrathecal pain pump it would be somewhat difficult to see anything other than possibly trigger points or SI joint treatments. Thank you very much for this consult. Patient is likely a bit too acute to do any further treatment at this time and his pain has not been particularly bothersome. Did tell him if he felt he needed to see us he could give us a call and we would get him in. Once again thank you for this interesting consult.
[2020-05-03] MEDS: Acetaminophen/HYDROcodone 325-10 MG Tab PO PRN (16:03)
== END 2020-05-03 18:00 | disposition home or self-care (01) | DRG 561 ==
LOC: VM.MS 14:28
PROVIDERS: ADMIT Internal Medicine; ATTEND Internal Medicine
DX: Z47.89 Encounter for other orthopedic aftercare (principal); E66.9 Obesity, unspecified; I25.10 Atherosclerotic heart disease of native coronary artery without angina pectoris; K59.00 Constipation, unspecified; E11.42 Type 2 diabetes mellitus with diabetic polyneuropathy; N40.1 Benign prostatic hyperplasia with lower urinary tract symptoms; R35.0 Frequency of micturition; I12.9 Hypertensive chronic kidney disease with stage 1 through stage 4 chronic kidney disease, or unspecified chronic kidney disease; E11.22 Type 2 diabetes mellitus with diabetic chronic kidney disease; N18.9 Chronic kidney disease, unspecified; M19.90 Unspecified osteoarthritis, unspecified site; Z90.49 Acquired absence of other specified parts of digestive tract; G89.18 Other acute postprocedural pain; Z98.1 Arthrodesis status; Z88.0 Allergy status to penicillin; Z79.82 Long term (current) use of aspirin; Z79.899 Other long term (current) drug therapy; Z68.28 Body mass index [BMI] 28.0-28.9, adult
CPT/HCPCS: 82962; 97110-GP; 97116-GP; 97161-GP; 97165-GO; 97535-GO; A9270-GY